=== PATIENT | male | born 1965 | race Caucasian/White ===

== ENCOUNTER 2016-11-22 10:03 | Emergency (ER) | payer BC ==
[~2016-11-22] VITALS: Ht 175.3 cm; Wt 144.3 kg
[~2016-11-22 10:03] MED LIST: ASPI-232 PO; ATOR-22 PO; FURO-85 PO; GABA1CAP4 PO; LISI-725 PO; MULT-351 PO; OMEG10007 PO; SYN200 PO
[2016-11-22 10:09] VITALS: TEMP 36.9; Ht 175.3 cm; Wt 144.3 kg
[2016-11-22] MEDS ORDERED: SODIUM CHLORIDE 0.9% 1000ML 1,000 ML IV STA (11:11)
[2016-11-22] MEDS ORDERED: ONDANSETRON INJ 2 MG/ML 2 ML VIAL IV STA (11:11)
[2016-11-22] MEDS: MoRPHine SULFATE 4 MG/ML 1 ML CARP\\VIAL IV PRN ×2 (11:53→13:26)
[2016-11-22 11:55] LABS: BASO % 0.4 %; BASO ABS # 0.05 K/uL (0-0.2); COMPLETE YES; EOS % 2.4 %; HEMATOCRIT 42.1 % (42-52); IG% 0.4 %; LYMPH % 33.7 %; LYMPH ABS # 3.99 K/uL (1.2-3.4); MEAN CORPUSCULAR HEMOGLOBIN 28.9 pg (25-34); MEAN CORPUSCULAR HGB CONC 33.3 g/dl (32-36); MEAN PLATELET VOLUME 9.5 fL (7.4-10.4); MONO % 5.9 %; NEUT % 57.2 %; PLATELET COUNT 218 K/uL (130-400); RED BLOOD COUNT 4.84 M/uL (4.7-6.1); WHITE BLOOD COUNT 11.84 K/uL (4.8-10.8)
[2016-11-22 12:11] LABS: BUN/CREATININE RATIO 16.6 (10-20); CREATININE 0.98 mg/dl (0.60-1.40)
[2016-11-22 12:13] LABS: URINE APPEARANCE CLEAR (CLEAR); URINE BILIRUBIN NEG (NEG); URINE COLOR YELLOW; URINE NITRITE NEG (NEG); URINE PH 5.5 (4.5-7.5); URINE SPECIFIC GRAVITY 1.015 (1.000-1.030); UROBILINOGEN NEG (NEG)
--- NOTE | 2016-11-22 12:21 | DIAGNOSTIC IMAGING REPORT ---
ABDOMINAL WALL ULTRASOUND CLINICAL HISTORY: Periumbilical pain. COMPARISON STUDY: No previous studies for comparison. FINDINGS: There is a nonreducible bowel containing umbilical hernia measuring 42 x 27 x 40 mm. IMPRESSION: Nonreducible bowel containing umbilical hernia. Electronically signed by: Nicholas Davidson M.D. 11/22/2016 12:20 PM Dictated Date/Time: 11/22/2016 12:19 PM
[2016-11-22 12:28] LABS: MANUAL MICROSCOPIC REQUIRED? NO; REVIEW REQ? NO
[2016-11-22] MEDS ORDERED: OPTIRAY 320 IV PRN (14:15)
--- NOTE | 2016-11-22 14:23 | DIAGNOSTIC IMAGING REPORT ---
CT ABD/PELVIS IV CONTRAST ONLY CLINICAL HISTORY: Umbilical hernia. Abdominal pain. COMPARISON STUDY: Ultrasound study dated November 22, 2016 TECHNIQUE: Following the IV administration of 119 mL of Optiray-320, CT scan of the abdomen and pelvis was performed from the lung bases to the proximal femurs. Images are reviewed in the axial, sagittal, and coronal planes. IV contrast was administered without complication. CT DOSE: 1669.23 mGy.cm FINDINGS: Lower chest: There are mild bibasal atelectatic changes Liver: The contrast-enhanced liver is normal in size, contour, and attenuation. There is no intrahepatic biliary ductal dilatation. The hepatic veins and portal veins are patent. Gallbladder: Unremarkable. Spleen: Normal in size and attenuation. Pancreas: Unremarkable. Adrenal glands: Unremarkable. Kidneys: There is upper pole left renal cortical scarring. There is a 5 mm hypodensity within the upper pole the right kidney consistent with a cyst. There are 2 8 mm cortical echodensities within the left kidney, likely representing cysts. Bowel: There are no transition zones indicate bowel obstruction. There is no evidence of acute diverticulitis. There are scattered colonic diverticula present. There is no evidence of acute appendicitis. Peritoneum: There is no free air, there is no ascites. There is a 5 cm fat-containing umbilical hernia. There is infiltration of the fat within the hernia as well as within the fat subjacent to the peritoneal defect. The findings may indicate fat necrosis. Vasculature: The abdominal aorta is normal in course and caliber. Adenopathy: There are mildly enlarged bilateral right external iliac and common femoral lymph nodes. Pelvic viscera: The bladder, and pelvic viscera are unremarkable. Skeletal structures: No destructive osseous lesions are seen. IMPRESSION: 1. 5 cm fat-containing umbilical hernia with infiltration of the fat within the subjacent to the hernia. This may indicate fat necrosis 2. No evidence of bowel obstruction. No evidence of free air 3. Mildly enlarged lower pelvic lymph nodes Electronically signed by: Nicholas Davidson M.D. 11/22/2016 2:22 PM Dictated Date/Time: 11/22/2016 2:13 PM
[2016-11-22 15:04] VITALS: BP 141/100; PULSE 75; O2SAT 92
--- NOTE | 2016-11-25 09:05 | EMERGENCY ROOM VISIT NOTE ---
ED Visit Note First contact with patient: 11:00 Chief Complaint: Abdominal pain. History of Present Illness: Mr. Bey is a 50 year-old white male complaining of umbilical abdominal pain. Historically patient reports no significant gastrointestinal diseases and status post appendectomy. Patient reports 2 days ago he was at work lifting a heavy object off the shelf. He reports when he got all he had a burning sensation over the bilateral lateral lower quadrants. He reports he used to nicely the symptoms resolved. Then this morning while standing up out of bed he felt a tearing sensation in the umbilicus and when he felt the area he noticed a lump. He went to work this morning was seen at [facility] and was found to have an umbilical hernia. He reports the doctor at the [facility] reduced the hernia but then it came back out. He was then referred to the ED for further evaluation and care. Currently patient is complaining of pain around the umbilicus. He describes it as a sharp pain. At rest he rates his discomfort 1/10 and with movement of the abdomen and ambulation he rates his discomfort 7/10. Pain is nonradiating. In addition his pain worsens with palpation. He has not taken any medications for pain prior to arrival at the hospital. Associated with his pain he reports he has been nauseated but has not vomited. Patient denies fevers, chills, sweats, skin eruptions, upper respiratory tract symptoms, shortness of breath, chest pain, diarrhea, constipation, rectal bleeding, black/tarry stools, urinary symptoms, hematuria, back/flank pain. Review of Systems: As noted above in history of present illness. All body systems were reviewed and found to be negative as noted above. Past Medical History: As previously noted, hypertension, prediabetes, status post pacemaker implantation. Current Medications: Medications Dose Route/Sig Max Daily Dose Days Date Category Gabapentin 300 Mg Cap 300 Mg PO BID 04/20/16 Reported Lipitor (Atorvastatin Calcium) 20 Mg Tab 20 Mg PO DAILY 02/01/16 Reported Synthroid (Levothyroxine Sodium) 200 Mcg Tab 200 Mcg PO DAILY 02/01/16 Reported Multi Vitamin Mens (Multiple Vitamin) 1 Tab Tab 1 Tab PO DAILY 03/10/15 Reported Aspir-81 (Aspirin) 81 Mg Tab 1 Tab PO DAILY 03/10/15 Reported Zestril (Lisinopril) 20 Mg Tab 20 Mg PO DAILY 03/10/15 Reported Lasix (Furosemide) 20 Mg Tab 20 Mg PO DAILY PRN 03/10/15 Reported [place]-3 (Fish Oil) 1 Ea Cap 2 Cap PO DAILY 03/10/15 Reported Allergies to Medications: Patient denies. Social History: Patient is currently employed; he feels safe in his home environment; he denies tobacco use and admits to alcohol use. Physical Examination: Vital Signs: Date Time Temp Pulse Resp B/P Pulse Ox O2 Delivery O2 Flow Rate FiO2 11/22/16 15:04 75 18 141/100 92 11/22/16 13:36 81 11/22/16 13:31 79 18 113/90 92 Room Air 11/22/16 11:53 77 11/22/16 11:53 70 17 127/81 96 Room Air 11/22/16 10:09 36.9 79 19 147/100 94 Room Air GENERAL: 50-year-old male in mild distress due to pain, nontoxic-appearing, afebrile and hemodynamically stable. NEUROLOGICAL: Awake, alert and oriented to person, place and time. Answering questions appropriately and following commands. Normal gait. Good hand eye coordination. SKIN: Warm, dry and pink. HEENT: Atraumatic and normocephalic. PERRLA. Sclera white and conjunctiva pink. Oral cavity moist and pink. Pharynx is nonerythematous or edematous. Speech normal. No lymphadenopathy. Trachea midline. No jugular venous distention. BACK: No tenderness over the bony spine. No CVA tenderness. THORAX: Lungs sounds are clear to auscultation and equal bilaterally with symmetrical chest wall. No wheezing, rales or rhonchi. No crepitus, tenderness , subcutaneous air or deformities noted. HEART: Regular rate and rhythm. No gallops, rubs or murmurs are appreciated. ABDOMEN: Obese and soft with moderate tenderness over the umbilical hernia. Also surrounding the umbilicus is an area of erythema without lymphangitis. Decreased bowel sounds in all quadrants. No guarding, rigidity or organomegaly. EXTREMITIES: Moves all extremities well on command and with purpose. All distal neurovascular statuses are intact and equal bilaterally. ED Course: Patient is assessed as noted above. Laboratory Testing: Test 11/22/16 11:35 11/22/16 11:55 Range/Units White Blood Count 11.84 4.8-10.8 K/uL Red Blood Count 4.84 4.7-6.1 M/uL Hemoglobin 14.0 14.0-18.0 g/dL Hematocrit 42.1 42-52 % Mean Corpuscular Volume 87.0 80-100 fL Mean Corpuscular Hemoglobin 28.9 25-34 pg Mean Corpuscular Hemoglobin Concent 33.3 32-36 g/dl Platelet Count 218 130-400 K/uL Mean Platelet Volume 9.5 7.4-10.4 fL Neutrophils (%) (Auto) 57.2 % Lymphocytes (%) (Auto) 33.7 % Monocytes (%) (Auto) 5.9 % Eosinophils (%) (Auto) 2.4 % Basophils (%) (Auto) 0.4 % Neutrophils # (Auto) 6.77 1.4-6.5 K/uL Lymphocytes # (Auto) 3.99 1.2-3.4 K/uL Monocytes # (Auto) 0.70 0.11-0.59 K/uL Eosinophils # (Auto) 0.28 0-0.5 K/uL Basophils # (Auto) 0.05 0-0.2 K/uL RDW Standard Deviation 53.1 36.4-46.3 fL RDW Coefficient of Variation 16.5 11.5-14.5 % Immature Granulocyte % (Auto) 0.4 % Immature Granulocyte # (Auto) 0.05 0.00-0.02 K/uL Sodium Level 141 136-145 mmol/L Potassium Level 4.0 3.5-5.1 mmol/L Chloride Level 107 98-107 mmol/L Carbon Dioxide Level 26 21-32 mmol/L Anion Gap 8.0 3-11 mmol/L Blood Urea Nitrogen 16 7-18 mg/dl Creatinine 0.98 0.60-1.40 mg/dl Est Creatinine Clear Calc Drug Dose 124.9 ml/min Estimated GFR () 102.3 Estimated GFR (Non- 88.3 BUN/Creatinine Ratio 16.6 10-20 Random Glucose 98 70-99 mg/dl Calcium Level 9.0 8.5-10.1 mg/dl Total Bilirubin 0.6 0.2-1 mg/dl Direct Bilirubin 0.1 0-0.2 mg/dl Aspartate Amino Transf (AST/SGOT) 12 15-37 U/L Alanine Aminotransferase (ALT/SGPT) 23 12-78 U/L Alkaline Phosphatase 110 45-117 U/L Total Protein 7.6 6.4-8.2 gm/dl Albumin 3.2 3.4-5.0 gm/dl Lipase 108 73-393 U/L Urine Color YELLOW Urine Appearance CLEAR CLEAR Urine pH 5.5 4.5-7.5 Urine Specific [place] 1.015 1.000-1.030 Urine Protein NEG NEG Urine Glucose (UA) NEG NEG Urine Ketones NEG NEG Urine Occult Blood NEG NEG Urine Nitrite NEG NEG Urine Bilirubin NEG NEG Urine Urobilinogen NEG NEG Urine Leukocyte Esterase NEG NEG Abdominal Ultrasound: Was reviewed by myself and read by the radiologist showing a nonreducible bowel containing umbilical hernia. IV Contrast Abdominal/Pelvic CT: Was reviewed by myself and read by the radiologist and shows a 5 cm fat-containing umbilical hernia with infiltration of the fat within the hernia which may indicate fat necrosis, no evidence of bowel obstruction, free air. Mildly enlarged lower pelvic lymph nodes. Patient was hydrated with normal saline, he received a total of 8 mg of morphine IV for pain and 4 mg of Zofran. An ice bag was placed on the patient's abdomen was placed in Trendelenburg; I was then subsequently able to partially reduce his hernia. Patient was reassessed multiple times during his stay in the emergency department. Patient's case was reviewed with Dr. Terrell; we agreed on diagnostic approach, treatment, disposition and plan. A lengthy conversation with the patient because he wanted to have surgery today and I informed him since there was no portion of the colon within the hernia that surgery could be done electively and did not require emergent. Patient was educated about tonight's findings and instructed on his treatment plan; he verbalized understanding of the plan. Clinical Impression: Umbilical fat-containing hernia. Decision-Making: Initially my differential diagnosis I considered incarcerated hernia, strangulated hernia, bowel obstruction and other causes. Disposition: Patient discharged home in stable condition; prior to departure he was reassessed and subjectively rated his discomfort 5/10. Plan: Patient was encouraged to alternate ibuprofen and acetaminophen as needed for pain. Patient was encouraged use ice on his umbilicus for 5 times a day for pain and swelling. Patient was encouraged not to lift anything more than 10 pounds and use proper lifting techniques. Patient was encouraged to follow-up with Dr. Benson, surgeon, for specialty care and treatment. Patient was encouraged return the ED for worsening/uncontrolled pain, increasing redness/swelling/hernia, fevers or any new/concerning symptoms.
[2016-11-29] MEDS ORDERED: OXYC-57 PO (08:06)
== END 2016-11-22 15:07 | disposition home or self-care (01) ==
LOC: C.EDB 10:05 → C.EDC 15:07
DX: K42.9 Umbilical hernia without obstruction or gangrene (principal); I10 Essential (primary) hypertension; Z95.0 Presence of cardiac pacemaker

== ENCOUNTER → 2016-11-29 | Day surgery (SDC) | payer BC ==
[2016-11-25 15:54] VITALS: BMI 47.0
[~2016-11-29] VITALS: Ht 175.3 cm; Wt 145.9 kg
[~2016-11-29] MED LIST changes: +ATROPINE SULFATE 0.1 MG/ML 5ML SYR IV PRN; +BACITRACIN 50000 UNIT VIAL ONE; +BUPIVACAINE/EPINEPHRINE 0.5% MPF 1:200,000 30 ML VIAL ONE; +CEFAZOLIN SOD 1 GM VIAL ONE; +DEXAMETHASONE SOD INJ 4 MG/ML VIAL ONE; +FENTANYL CITRATE INJ 50 MCG/1 ML 2 ML VIAL IV PRN; +FENTANYL CITRATE INJ 50 MCG/1 ML 2 ML VIAL ONE; +GLYCOPYRROLATE INJ 0.2 MG/ML VIAL ONE; +KETOROLAC TROMETHAMINE 30 MG/ML VIAL IV. PRN; +KETOROLAC TROMETHAMINE 30 MG/ML VIAL ONE; +LABETALOL HCL IV 5 MG/ML 20ML IV PRN; +LACTATED RINGER'S 1000ML 1,000 ML IV SCH; +LIDOCAINE HCL 2% 2 ML VIAL (20MG/ML) ONE; +MIDAZOLAM HCL 1 MG/ML 2ML VIAL ONE; +MoRPHine SULFATE 2 MG/ML CARP IV PRN; +NEOSTIGMINE METHYLSULFATE 5 MG/5 ML SYR ONE; +ONDANSETRON INJ 2 MG/ML 2 ML VIAL IV PRN; +ONDANSETRON INJ 2 MG/ML 2 ML VIAL ONE; +OXYC-57 PO; +OXYCODONE/ACETAMINOPHEN 5-325 TAB PO PRN; +PHENYLEPHRINE 100MCG/ML 5ML SYR ONE; +PROPOFOL IV EMULSION 10 MG/ML 20 ML VIAL IV ONE; +ROCURONIUM BROMIDE 10 MG/ML 5 ML VIAL ONE; +SUCCINYLCHOLINE CHLORIDE 20 MG/ML 10 ML VIAL IV ONE
[2016-11-29 05:37] VITALS: BP 149/82; PULSE 92; TEMP 37.1; O2SAT 94; Ht 175.3 cm; Wt 145.9 kg
--- NOTE | 2016-11-29 06:01 | History & Physical Bridge Note ---
H&P Re-Evaluation Bridge Note: I have examined the patient, reviewed the History & Physical and in the interval since the performance of the History & Physical I have noted the following changes of clinical significance: No changes noted pt marked
--- NOTE | 2016-11-29 08:03 | [facility] Post Operative Brief Note ---
Immediate Operative Summary Operative Date Nov 29, 2016. Pre-Operative Diagnosis Incarcerated umbilical hernia Post-Operative Diagnosis same as pre-operative multifenestrated defects Procedure(s) Performed Open Incarcerated Umbilical Hernia Repair with multi-fenestrated hernia bermudez procedure resection of incarcerated omentum Surgeon Dr. Asif Rodríguez Office Rn Surgeon(s) Regulo Botello PA-C Estimated Blood Loss 5ml Findings multiple incarcerated hernia defect (compiled in one jenn defect 3 cm Specimens A: Omentum and Hernia Sac Anesthesia .5% marcaine local and general
--- NOTE | 2016-11-29 08:08 | Discharge Instructions ---
Discharge Instructions Visit Reason for Visit: Incarcerated Umbilical Hernia Discharge Discharge Diagnosis / Problem: Repair of hernia Discharge Goals Goal(s): Decrease discomfort Activity Recommendations Activity Limitations: as noted below Lifting Limitations: no more than 10 pounds Shower/Bathe: tomorrow (bandage is waterproof, you can shower over it, remove bandage in 2-3 days) Driving or Machine Use: resume 3 days after discharge (if not taking Percocet) Anesthesia . Post Anesthesia Instructions: If you have had General Anesthesia or IV Sedation: * Do not drive today. * Resume driving when surgeon permits. * Do not make important decisions or sign legal documents today. * Call surgeon for: 1. Temperature elevations greater than 101 degrees F. 2. Uncontrollable pain. 3. Excessive bleeding. 4. Persistent nausea and vomiting. 5. Medication intolerance (nausea, vomiting or rash). * For nausea and vomiting use only clear liquids such as: tea, soda, bouillon until nausea subsides, then gradually increase diet as tolerated. * If you have any concerns or questions, call your surgeon's office. If physician is unavailable and it is an emergency, call 911 or go to the nearest emergency room. . Instructions / Follow-Up Instructions / Follow-Up Dr. Rodríguez in 1 week, call [phone] if you do not already have an appt or with any questions Procedures Procedures Performed: Open Incarcerated Umbilical Hernia Repair with multi-fenestrated hernia bermudez procedure resection of incarcerated omentum Pending Studies Studies pending at discharge: no Medical Emergencies . Who to Call and When: Medical Emergencies: If at any time you feel your situation is an emergency, please call 911 immediately. . Non-Emergent Contact Non-Emergency issues call your: Surgeon Call Non-Emergent contact if: you have a fever, temperature is above 101.5, your pain is not controlled, wound has increased drainage, wound has increased redness . . "Provider Documentation" section prepared by Regulo Botello.
[2016-11-29 08:50] VITALS: BP 111/57; PULSE 64; TEMP 36.7; O2SAT 92
--- NOTE | 2016-11-29 09:05 | OPERATIVE REPORT ---
DATE OF OPERATION: 11/29/2016 PREOPERATIVE DIAGNOSIS: Incarcerated umbilical hernia. POSTOPERATIVE DIAGNOSIS: Multiple fenestrated incarcerated umbilical hernia. PROCEDURE: Repair (Dickey) and resection of incarcerated omentum. SURGEON: Dr. Rodríguez. TAPE RECORDER REPAIRER: Dale Botello PA-C. OPERATION AND FINDINGS: SUMMARY: The patient was brought into the operating room under general anesthetic. The abdomen was scrubbed and prepped with Betadine solution and properly draped. Systemic antibiotics were given. The patient's umbilical area was still a little bit edematous though certainly no cellulitis. The patient had an incarcerated hernia reduced in the ER approximately a week ago. At this point, I elected to make an incision from 3-9 o'clock position infraumbilically, deepened through subcutaneous tissue. Once we got into the subQ there was moderate amount of edema appreciated. There was obviously no purulence. We dissected down bluntly all the way to the abdominal wall. Inferiorly we were able to identify the abdominal wall and then we took off the hernial sac off the umbilical tissue which was quite adherent. Once we freed this all up, we actually could see a moderate amount of edema still present in the tissue. We at this point, opened the hernial sac and tried to reduce this intraabdominally by resecting the incarcerated omentum. As it turned out, the patient has had multiple fenestrations all around the area at least 3 or 4. What we did was basically unite all the septations into 1 defect which was approximately 3 cm in size. Once we had resected the incarcerated omentum and were able to place a finger intraabdominally I was able to palpate the abdominal wall inferior superior. There was no evidence of any other hernial defects. We used Samara clamps to elevate the abdominal wall and the defect scoring it superiorly to delineate it more as far as the subcutaneous tissue. I was hesitant to use any mesh on this gentleman given the fact that it was still slightly edematous tissue, possibility of being infected and therefore I elected to close it transversely in the Diceky repair using 2-0 nylon sutures, taking bites superiorly, then intraabdominally, then outside intraabdominally then back to the other area in a sort of [id number] repair. The accessory vest was actually coming down inferiorly to the incision and then once this was completed, we then closed with more tacking down the vest over to the inferior aspect of the abdominal wall on the incision. The repair appeared to be solid. This was all done with 0 Prolene suture interrupted. The area was then checked for hemostasis and appeared satisfactory. We used 0.5% Marcaine topically and injected the abdominal wall, then closed the wound with 2-0 Dexon in multiple layers, attached to the umbilical tissue down onto the repair. Reid for skin edges. Dressing was applied. The procedure was tolerated well by the patient. Estimated blood loss approximately 5 mL. The patient was taken to recovery room in good condition. I attest to the content of the Intraoperative Record and any orders documented therein. Any exceptio ns are noted below.
[2016-11-29 09:20] VITALS: BP 117/48; PULSE 62; O2SAT 97
[2016-11-29 09:50] VITALS: BP 122/68; PULSE 64; TEMP 36.7; O2SAT 95
--- NOTE | 2016-11-29 10:22 | Anesthesiology Progress Note ---
Anesthesia Post Op Note Date & Time Nov 29, 2016 at 10:22 Vital Signs Pain Intensity: 4 Vital Signs Past 12 Hours Date Time Temp Pulse Resp B/P Pulse Ox O2 Delivery O2 Flow Rate FiO2 11/29/16 09:50 36.7 64 18 122/68 95 Room Air 11/29/16 09:20 62 18 117/48 97 Room Air 11/29/16 08:50 36.7 64 18 111/57 92 Room Air 11/29/16 08:45 36.8 70 12 123/69 96 Room Air 11/29/16 08:35 74 12 125/71 90 Room Air 11/29/16 08:25 68 15 128/72 95 Mask 10 11/29/16 08:15 78 12 124/78 97 Mask 10 11/29/16 08:06 36.2 89 16 125/81 94 Mask 10 11/29/16 05:37 37.1 92 20 149/82 94 Room Air Notes Mental Status: alert / awake / arousable, participated in evaluation Pt Amnestic to Procedure: Yes Nausea / Vomiting: adequately controlled Pain: adequately controlled Airway Patency, RR, SpO2: stable & adequate BP & HR: stable & adequate Hydration State: stable & adequate Anesthetic Complications: no major complications apparent
[2016-11-29 10:25] VITALS: BP 120/66; PULSE 66; TEMP 36.7; O2SAT 96
== END | disposition home or self-care (01) ==
LOC: C.ACU 04:57
PROVIDERS: ATTEND Surgery
DX: K42.0 Umbilical hernia with obstruction, without gangrene (principal); Z79.82 Long term (current) use of aspirin